=== PATIENT | female | born 1955 | race Caucasian/White ===

== ENCOUNTER 2019-04-05 18:01 | Emergency (ER) | payer OTHER ==
[~2019-04-05] VITALS: Ht 152.4 cm; Wt 58.5 kg
[2019-04-05 18:08] VITALS: Ht 152.4 cm; Wt 58.5 kg
[2019-04-05 19:20] VITALS: BP 137/39
== END 2019-04-05 19:20 | disposition home or self-care (01) ==
LOC: ED 18:01
DX: M23.91 Unspecified internal derangement of right knee (principal); E78.00 Pure hypercholesterolemia, unspecified; E11.9 Type 2 diabetes mellitus without complications
CPT/HCPCS: J1885